=== PATIENT | male | born 1960 | race Caucasian/White ===

== ENCOUNTER 2017-09-09 06:44 | Emergency (ER) | payer BC ==
[2017-09-09] MEDS ORDERED: Aspirin 81 MG Tab.Chew PO ONE (07:05)
--- NOTE | 2017-09-09 07:14 | EDM.PDOC ---
ED HPI GENERAL MEDICAL PROBLEM - General Chief Complaint: Chest Pain Stated Complaint: CHEST PAIN Time Seen by Provider: 09/09/17 06:45 Source of Information: Reports: Patient, Family History Limitations: Reports: No Limitations - History of Present Illness INITIAL COMMENTS - FREE TEXT/NARRATIVE: 56 y.o.w.m with CAD riskfactors (FH. Male), came to the ed after he woke up at 2 am with an "elephant sitting on his chest".Pt took ASA and the symptoms improved to 0/10. Pt has back pain with movement only. No N/V/D or dizziness, no diaphoresis. ECG showed a NSR , No ST/T wave changes. BP 141/81 RR 14 Pulse ox 100% on RA Temp 36.9 Pulse 60. 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: Aspirin UPPER BACK Pain Score (Numeric/FACES): 5 - Related Data Allergies Allergy/AdvReac Type Severity Reaction Status Date / Time No Known Allergies Allergy Verified 09/09/17 07:09 Home Meds: Home Meds NK [No Known Home Meds] 09/09/17 [History] ED ROS GENERAL - Review of Systems Review Of Systems: See Below Constitutional: Reports: No Symptoms HEENT: Reports: No Symptoms Respiratory: Reports: No Symptoms Cardiovascular: Reports: Chest Pain Endocrine: Reports: No Symptoms GI/Abdominal: Reports: No Symptoms : Reports: No Symptoms Musculoskeletal: Reports: No Symptoms Skin: Reports: No Symptoms Neurological: Reports: No Symptoms Psychiatric: Reports: No Symptoms Hematologic/Lymphatic: Reports: No Symptoms Immunologic: Reports: No Symptoms ED EXAM, GENERAL - Physical Exam Exam: See Below Exam Limited By: No Limitations General Appearance: Alert, WD/WN, Mild Distress, Obese Eye Exam: Bilateral Eye: Normal Inspection Ears: Normal External Exam Ear Exam: Bilateral Ear: Auricle Normal Nose: Normal Inspection, Normal Mucosa Throat/Mouth: Normal Inspection, Normal Lips, Normal Voice, No Airway Compromise Head: Atraumatic, Normocephalic Neck: Normal Inspection, Supple, Non-Tender, Full Range of Motion Respiratory/Chest: No Respiratory Distress, Lungs Clear, Normal Breath Sounds, No Accessory Muscle Use, Chest Non-Tender Cardiovascular: Normal Peripheral Pulses, Regular Rate, Rhythm, No Edema, No Gallop, No JVD, No Murmur, No Rub Peripheral Pulses: 1+: Brachial (L) GI/Abdominal: Normal Bowel Sounds, Soft, Non-Tender, No Organomegaly, No Abnormal Bruit, No Mass, Pelvis Stable (Male) Exam: No Hernia Rectal (Males) Exam: Deferred Back Exam: Normal Inspection Extremities: Normal Inspection, Normal Range of Motion, Non-Tender, No Pedal Edema, Normal Capillary Refill Neurological: Alert, Oriented, CN II-XII Intact, Normal Cognition, Normal Gait, No Motor/Sensory Deficits Psychiatric: Normal Affect, Normal Mood Skin Exam: Warm, Dry, Intact, Normal Color, No Rash Lymphatic: No Adenopathy EKG INTERPRETATION EKG Date: 09/09/17 Time: 07:10 Rhythm: NSR Rate (Beats/Min): 60 [place]: Normal P-Wave: Present QRS: Normal ST-T: Normal QT: Normal Comparison: NA - No Prior EKG Course - Vital Signs Text/Narrative:: 56 y.o.w.m with CAD riskfactors (FH. Male), came to the ed after he woke up at 2 am with an "elephant sitting on his chest".Pt took ASA and the symptoms improved to 0/10. Pt has back pain with movement only. No N/V/D or dizziness, no diaphoresis. ECG showed a NSR , No ST/T wave changes. BP 141/81 RR 14 Pulse ox 100% on RA Temp 36.9 Pulse 60. PE: WNWD W M came by PC to the ed becasue of SSCP this am, whci subsided UNIT AIDE TECH after taking ASA Labs: CBC nl Troponin: 0.137 Chol/HDL ratio 3.8 BUN 20 Cr 1.1 Na/K nl D Dimer: 141 INR 1.01 Imaging: CXR: NAD EKG: NSR Impression: Non STEMI Tx: ASA 324mg, Heparin NON STEMI protocol Reexam: Pain free 8.16 am Consultation: Dr. Miramontes Sign Painter, [facility]: Keep pt pain free, start [place] Protocol Plan: Transfer to [facility] Last Recorded V/S: Last Vital Signs Temp Pulse 68 09/09/17 08:36 Resp 17 09/09/17 08:36 BP 143/78 H 09/09/17 08:36 Pulse Ox 100 09/09/17 08:36 - Orders/Labs/Meds Orders: Active Orders 24 hr Category Date Time Status CXR [Chest 1V Frontal] [CR] Stat Exams 09/09/17 06:59 Taken Heparin Sodium/0.45% NaCl [Heparin 25,000 Units in 1/2 Med 09/09/17 08:30 Active NS 500 ML] 25,000 units in 500 ml IV TITRATE EKG 12 Lead [EK] Routine Ther 09/09/17 06:59 Ordered Medication Orders Heparin Sodium/Sodium Chloride (Heparin 25,000 Units In 1/2 Ns 500 Ml) 25,000 units in 500 mls @ 19.978 mls/hr IV TITRATE AMBROSE; Protocol Last Admin: 09/09/17 08:45 Dose: 9.1 units/kg/hr, 19.978 mls/hr Labs: Laboratory Tests 09/09/17 09/09/17 09/09/17 Range/Units 07:05 07:05 07:05 WBC 7.8 (4.5-12.0) X10-3/uL RBC 4.41 (4.30-5.75) x10(6)uL Hgb 13.8 (11.5-15.5) g/dL Hct 40.5 (30.0-51.3) % MCV 91.8 (80-96) fL MCH 31.3 (27.7-33.6) pg MCHC 34.1 (32.2-35.4) g/dL RDW 13.1 (11.5-15.5) % Plt Count 180 (125-369) X10(3)uL MPV 8.3 (7.4-10.4) fL Neut % (Auto) 71.5 (46-82) % Lymph % (Auto) 16.7 (13-37) % Randall % (Auto) 9.2 (4-12) % Eos % (Auto) 2 (1.0-5.0) % Baso % (Auto) 1 (0-2) % Neut # (Auto) 5.6 (1.6-8.3) # Lymph # (Auto) 1.3 (0.6-5.0) # Randall # (Auto) 0.7 (0.0-1.3) # Eos # (Auto) 0.1 (0.0-0.8) # Baso # (Auto) 0.1 (0.0-0.2) # PT (8.7-11.1) INR (0.89-1.13) D-Dimer, Quantitative (100-400) ng/mL Sodium 140 (135-145) mmol/L Potassium 4.6 (3.5-5.3) mmol/L Chloride 105 (100-110) mmol/L Carbon Dioxide 28 (21-32) mmol/L BUN 20 H (7-18) mg/dL Creatinine 1.1 (0.70-1.30) mg/dL Est Cr Clr Drug Dosing 83.28 mL/min Estimated GFR (MDRD) > 60 (>60) BUN/Creatinine Ratio 18.2 (9-20) Glucose 112 (80-116) mg/dL Calcium 8.6 (8.6-10.2) mg/dL Creatine Kinase 145 (60-160) IU/L Troponin I 0.137 H* (<0.017-0.056) ng/mL Triglycerides 72 (15-150) mg/dL Cholesterol 209 H (50-200) mg/dL LDL Cholesterol Direct 136 H (60-130) mg/dL HDL Cholesterol 58 (40-75) mg/dL Cholesterol/HDL Ratio 3.6 (0-5) 09/09/17 09/09/17 Range/Units 07:05 07:05 WBC (4.5-12.0) X10-3/uL RBC (4.30-5.75) x10(6)uL Hgb (11.5-15.5) g/dL Hct (30.0-51.3) % MCV (80-96) fL MCH (27.7-33.6) pg MCHC (32.2-35.4) g/dL RDW (11.5-15.5) % Plt Count (125-369) X10(3)uL MPV (7.4-10.4) fL Neut % (Auto) (46-82) % Lymph % (Auto) (13-37) % Randall % (Auto) (4-12) % Eos % (Auto) (1.0-5.0) % Baso % (Auto) (0-2) % Neut # (Auto) (1.6-8.3) # Lymph # (Auto) (0.6-5.0) # Randall # (Auto) (0.0-1.3) # Eos # (Auto) (0.0-0.8) # Baso # (Auto) (0.0-0.2) # PT 10.2 (8.7-11.1) INR 1.01 (0.89-1.13) D-Dimer, Quantitative 141 (100-400) ng/mL Sodium (135-145) mmol/L Potassium (3.5-5.3) mmol/L Chloride (100-110) mmol/L Carbon Dioxide (21-32) mmol/L BUN (7-18) mg/dL Creatinine (0.70-1.30) mg/dL Est Cr Clr Drug Dosing mL/min Estimated GFR (MDRD) (>60) BUN/Creatinine Ratio (9-20) Glucose (80-116) mg/dL Calcium (8.6-10.2) mg/dL Creatine Kinase (60-160) IU/L Troponin I (<0.017-0.056) ng/mL Triglycerides (15-150) mg/dL Cholesterol (50-200) mg/dL LDL Cholesterol Direct (60-130) mg/dL HDL Cholesterol (40-75) mg/dL Cholesterol/HDL Ratio (0-5) Meds: Medications Generic Name Dose Route Start Last Admin Trade Name Freq PRN Reason Stop Dose Admin Heparin Sodium/Sodium Chloride 25,000 units in 500 mls @ 19.978 mls/hr 08:30 09/09/17 08:45 Heparin 25,000 Units In 1/2 Ns 500 Ml IV 9.1 units/kg/hr TITRATE AMBROSE 19.978 mls/hr Administration Protocol 9.1 UNITS/KG/HR Discontinued Medications Generic Name Dose Route Start Last Admin Trade Name Freq PRN Reason Stop Dose Admin Aspirin 324 mg 09/09/17 07:05 09/09/17 06:55 Aspirin PO 09/09/17 07:06 324 mg ONETIME ONE Administration Heparin Sodium (Porcine) 4,000 units 09/09/17 08:45 09/09/17 08:44 Heparin Sodium IV 09/09/17 08:46 4,000 units ONETIME ONE Administration Departure - Departure Time of Disposition: 09:21 Disposition: DC/Tfer to [facility] Reason for Transfer *Q: Other (No refrigeration service inspector) Condition: Fair Clinical Impression: Non-STEMI (non-ST elevated myocardial infarction) Referrals: Cam Caldwell MD [Primary Care Provider] - Forms: ED Department Discharge - My Orders Last 24 Hours: My Active Orders 09/09/17 06:59 CXR [Chest 1V Frontal] [CR] Stat EKG 12 Lead [EK] Routine 09/09/17 08:30 Heparin Sodium/0.45% NaCl [Heparin 25,000 Units in 1/2 NS 500 ML] 25,000 units in 500 ml IV TITRATE - Assessment/Plan Last 24 Hours: My Active Orders 09/09/17 06:59 CXR [Chest 1V Frontal] [CR] Stat EKG 12 Lead [EK] Routine 09/09/17 08:30 Heparin Sodium/0.45% NaCl [Heparin 25,000 Units in 1/2 NS 500 ML] 25,000 units in 500 ml IV TITRATE
[2017-09-09] MEDS ORDERED: Heparin Sodium/0.45% NaCl 25,000 UNITS/500 ML BAG IV SCH (08:30)
[2017-09-09] MEDS ORDERED: Heparin Sodium 5,000 Units/ML Vial IV ONE (08:45)
--- NOTE | 2017-09-09 11:51 | CR ---
INDICATION: Chest pain. CHEST: An AP upright portable view of the chest was obtained 09/09/2017 and compared with 02/10/2017, revealing the heart to be normal in size and shape. Overlying EKG leads are noted. An active infiltrate or effusion was not seen. IMPRESSION: No acute process - stable chest. MTDD
== END 2017-09-09 09:17 | disposition critical access hospital (66) ==
LOC: FB.ED 06:44
DX: I21.4 Non-ST elevation (NSTEMI) myocardial infarction (principal)
CPT/HCPCS: 36415; 71045; 80048; 80061; 82550; 84484; 85025; 85379; 85610; 93005; 96365; 99285; A9270; J1644

== ENCOUNTER 2021-10-18 16:03 | Inpatient (IN) | payer BC ==
[2021-10-18] MEDS ORDERED: Ondansetron 4 MG/2 ML SDV IVPUSH ONE (16:27)
[2021-10-18] MEDS ORDERED: Sodium Chloride 0.9% 1,000 ML IV SCH (16:30)
[2021-10-18] MEDS ORDERED: Ketorolac 30 MG/ML SDV IVPUSH ONE (17:54)
[2021-10-18] MEDS ORDERED: Morphine 4 MG/ML VIAL IVPUSH ONE (17:54)
[2021-10-18] MEDS: Sodium Chloride 0.9% 1,000 ML IV SCH (18:00)
[2021-10-18] MEDS ORDERED: Iopamidol 755 Mg/ML 75 ML Bottle IV ONE (18:38)
[2021-10-18] MEDS ORDERED: Dexamethasone 4 MG/ML SDV IVPUSH STA (20:58)
[2021-10-18] MEDS ORDERED: Ampicillin/Sulbactam Na 3 GM in Sodium Chloride 0.9% 100 ML IV STA (20:58)
[2021-10-19] MEDS ORDERED: Morphine 2 MG/ML SYRINGE IVPUSH PRN (00:59)
[2021-10-19] MEDS ORDERED: Ondansetron 4 MG/2 ML SDV IV PRN (00:59)
[2021-10-19] MEDS ORDERED: Ketorolac 30 MG/ML SDV IVPUSH PRN (00:59)
[2021-10-19] MEDS ORDERED: Ampicillin/Sulbactam Na 3 GM in Sodium Chloride 0.9% 100 ML IV SCH (01:00)
[2021-10-19] MEDS: Sodium Chloride 0.9% 1,000 ML IV SCH ×2 (02:20→13:15)
[2021-10-19] MEDS: Ampicillin/Sulbactam Na 3 GM in Sodium Chloride 0.9% 100 ML IV SCH ×4 (03:34→21:24)
[2021-10-19] MEDS: Dexamethasone 4 MG/ML SDV IVPUSH SCH ×3 (06:02→22:52)
[2021-10-20] MEDS: Ampicillin/Sulbactam Na 3 GM in Sodium Chloride 0.9% 100 ML IV SCH ×4 (03:39→19:13)
[2021-10-20] MEDS: Sodium Chloride 0.9% 1,000 ML IV SCH (06:16)
[2021-10-20] MEDS: Dexamethasone 4 MG/ML SDV IVPUSH SCH ×3 (06:41→23:01)
[2021-10-20] MEDS: Sodium Chloride 0.9% 10 ML Syringe FLUSH PRN (23:05)
[2021-10-21] MEDS: Ampicillin/Sulbactam Na 3 GM in Sodium Chloride 0.9% 100 ML IV SCH (02:12)
[2021-10-21] MEDS: Sodium Chloride 0.9% 10 ML Syringe FLUSH PRN ×2 (03:15→06:27)
[2021-10-21] MEDS: Dexamethasone 4 MG/ML SDV IVPUSH SCH (06:25)
[2021-10-21] MEDS ORDERED: predniSONE 20 MG Tab PO SCH (08:00)
[2021-10-21] MEDS ORDERED: Amoxicillin/Clavulanate K 875-125 MG Tab PO ONE (08:00)
[2021-10-21] MEDS ORDERED: Amoxicillin/Clavulanate K 875-125 MG Tab PO SCH ×2 (09:00→21:00)
== END 2021-10-21 08:38 | disposition home or self-care (01) | DRG 113 ==
LOC: FB.ED 16:03 → FB.MS 22:37 → OBSVTOIN 10-19 10:10
PROVIDERS: ADMIT Student in an Organized Health Care Education/Training Program; ATTEND Family Medicine
DX: J02.9 Acute pharyngitis, unspecified (principal); Z79.52 Long term (current) use of systemic steroids; Z88.1 Allergy status to other antibiotic agents; I25.2 Old myocardial infarction; Z86.16 Personal history of COVID-19; Z87.891 Personal history of nicotine dependence
CPT/HCPCS: 36415; 70491; 71045; 80048; 80053; 85025; 86308; 87651-QW; 96361; 96365; 96366; 96375; 96376; 99284-25; A9270-GY; G0378; J0295; J1100; J1885; J2270; J2405; J3490; J7030; J7512; Q9967

== ENCOUNTER 2024-12-30 14:54 | Inpatient (IN) | payer BC ==
[2024-12-30] MEDS: ETHYL ALCOHOL NASBOTH SCH (20:28)
[2024-12-30] MEDS: Sennosides/Docusate Sodium 50-8.6 MG Tab PO SCH (20:29)
[2024-12-31] MEDS: Aspirin 325 MG Tab.EC PO SCH (09:21)
[2025-01-01] MEDS: Acetaminophen/HYDROcodone 325-5 MG Tab PO PRN (04:28)
[2025-01-05 14:47] VITALS: BP 138/78; PULSE 90
== END 2025-01-05 14:35 | disposition home or self-care (01) | DRG 861 ==
LOC: FB.MS 16:39
PROVIDERS: ADMIT Family Medicine; ATTEND Internal Medicine
DX: R53.1 Weakness (principal); M19.90 Unspecified osteoarthritis, unspecified site; I25.2 Old myocardial infarction; Z98.890 Other specified postprocedural states; Z79.82 Long term (current) use of aspirin; Z86.16 Personal history of COVID-19; Z79.899 Other long term (current) drug therapy
CPT/HCPCS: 97110-GP; 97116-GP; 97140-GP; 97161-GP; 97165-GO; 97530-GP; 97535-GO; 99304; 99315; A9270-GY